=== PATIENT | female | born 1990 | race African-American/Black ===

== ENCOUNTER 2017-02-06 09:02 | Emergency (ER) | payer OTHER ==
--- NOTE | ~2017-02-06 | US106 ---
[facility] A Service of [facility] & [facility] RADIOLOGY TEXT RESULTS PATIENT: AMBROSE DOBBS LOCATION: [facility] : [birth year] UNIT #: [id number] AGE: [address]: Mei Arellano APRN SEX: F ORDER DR: [id number] [facility] [address] [place], [place] [address] [id number] E MR#: [id number] Acc #: [id number] NAME: AMBROSE DOBBS : 1990 SEX: F STUDY DATE/TIME: 02/06/2017 12:12 UNIT: [facility] ROOM: STUDY DESCRIPTION: US Preg Uterus Transvaginal Attending Physician: Mei Arellano A.P.R.N. Ordering Physician: Ed Doctor [id number] [facility] Primary Care Physician: Rickie Jiang M.D. MEDICAL IMAGING REPORT This report is preliminary unless electronic signature is present EXAM Transvaginal pelvic ultrasound 02/06/2017 HISTORY A 26-year-old female with vaginal bleeding beginning this morning. History of 2 previous selective abortions. Slip and fall a few days ago. COMPARISON STUDIES None. FINDINGS Transvaginal scanning of the pelvis demonstrates a markedly thickened and heterogeneous appearance of the endometrial echo complex and endometrial cavity. There is fluid noted within the cavity with multiple lobular heterogeneous areas. No significant vascularity associated with the endometrial echo complex. No definite intrauterine identified. Differential considerations could include to gestational trophoblastic disease such as molar versus retained products of conception. Correlation with serial beta hCG and follow up ultrasound as indicated. Remainder of the uterus is unremarkable. The right ovary is normal and measures 1.2 x 2.8 x 1.4 cm. Normal vascular flow in the right ovary. There is a corpus luteal cyst in the left ovary. The left ovary measures 3.5 x 3.4 by 3.7 cm. Normal vascular flow in the left ovary. The corpus luteal cyst measures 2.6 x 2.4 x 3.4 cm. Trace free pelvic fluid. IMPRESSION 1. Markedly heterogeneous and thickened endometrial echo complex with fluid and heterogeneous structures noted within the endometrial cavity. No significant vascularity associated with this area. No definite intrauterine identified. This is nonspecific, but differential considerations could include gestational trophoblastic disease such as molar versus retained products of STS. [facility] A Service of [facility] RADIOLOGY TEXT RESULTS PATIENT: AMBROSE DOBBS LOCATION: [facility] : [birth year] UNIT #: [id number] AGE: [address]: Mei Arellano APRN SEX: F ORDER DR: conception. Correlation with serial beta hCG and follow up ultrasound is indicated. 2. Corpus luteal cyst in the left ovary. Ovaries otherwise unremarkable. 3. Trace free pelvic fluid. Dictated by... Rogelio Romo M.D. THIS IS AN ELECTRONICALLY VERIFIED REPORT Rogelio Romo M.D. at 02/08/2017 8:32 AM Dahlia TD: 02/07/2017 10:00 JOB #: [id number] MEDICAL IMAGING REPORT Page 1 of 1 COPY
[2017-02-06 09:38] LABS: BASOPHIL% 0.7 % (0-2.5); EOSINOPHIL# 0.1 X10e3 (0-0.7); EOSINOPHIL% 1.8 % (0.0-7.0); HEMOGLOBIN 12.1 gm/dL (12.0-16.0); LYMPHOCYTE# 1.1 X10e3 (1.0-3.5); LYMPHOCYTE% 23.9 % (17.0-45.0); MEAN CELL VOLUME 84.9 FL (83-96); MEAN CORPUSCULAR HEMOGLOBIN 27.7 PG (28-34); MEAN CORPUSCULAR HGB CONC 32.6 g/dL (30-36); MEAN PLATELET VOLUME 8.1 FL (6.5-11.5); MONOCYTE# 0.4 X10e3 (0-1.0); MONOCYTE% 9.6 % (3.0-12.0); PLATELET COUNT 215 X10e3 (140-420); RED BLOOD COUNT 4.36 X10e (3.90-5.30); RED CELL DISTRIBUTION WIDTH 12.6 % (11.0-15.5); WHITE BLOOD COUNT 4.6 X10e3 (4.0-10.5)
[2017-02-06 09:39] LABS: DIFF IND NO
[2017-02-06 09:44] LABS: POC - CKMB <1.0 ng/mL (0.0-7.9); POC - TROPONIN <0.05 ng/mL (<=0.05)
[2017-02-06 10:02] LABS: CALCIUM SERUM 9.3 mg/dL (8.4-10.2); CARBON DIOXIDE 26 mmol/L (22-31); CHLORIDE 103 mmol/L (100-111); CREATININE SERUM 0.6 mg/dL (0.6-1.4); GLOM FILT RATE Estimated ABOVE60 mL/min (>60); GLUCOSE FASTING 83 mg/dL (70-110); POTASSIUM 3.6 mmol/L (3.5-5.1); SODIUM 138 mmol/L (135-145)
[2017-02-06 10:03] LABS: BLOOD UREA NITROGEN <5 mg/dL (9-23); BUN/CREATININE RATIO 8.33
[2017-02-06 14:46] LABS: URINE SOURCE CATH
[2017-02-06 14:55] LABS: URINE APPEARANCE CLEAR; URINE BILIRUBIN NEG (NEG); URINE BLOOD 2+ (NEG); URINE COLOR YELLOW; URINE GLUCOSE NEG (NEG); URINE KETONE 2+ (NEG); URINE LEUKOCYTE ESTERASE NEG (NEG); URINE NITRATE NEG (NEG); URINE PH 8.5 (5-8); URINE PROTEIN NEG (NEG); URINE SPECIFIC GRAVITY 1.019 (1.003-1.035); URINE UROBILINOGEN 0.2 MG/DL (NEG)
[2017-02-06 14:58] LABS: URBCS1 AUWI 0-2 /[HPF] (0-2); URINE BACTERIA AUWI NEG (NEGATIVE); URINE SQUAMOUS EPITHELIAL CELL OCC /[HPF]; UWBCS1 AUWI 0-2 (0-5)
[2017-02-06 15:00] LABS: CULTURE INDICATED? NO
[2017-02-10 10:52] LABS: CHLAMYDIA TRACH Not Detected (Not Detected); N GONOR Not Detected (Not Detected)
== END 2017-02-06 15:11 | disposition home or self-care (01) ==
LOC: CED 09:02
PROVIDERS: Nurse Practitioner
DX: O20.9 Hemorrhage in early pregnancy, unspecified (principal); Z32.01 Encounter for pregnancy test, result positive
CPT/HCPCS: 36415; 51701; 76817; 80048; 81003; 82553; 84484; 84702; 85025; 86900; 86901; 87491; 87591; 87808; 87905; 99284